=== PATIENT | male | born 1985 | race Caucasian/White ===

== ENCOUNTER 2024-03-30 16:42 | Emergency (ER) | payer SELFPAY ==
[~2024-03-30] VITALS: Ht 182.9 cm; Wt 99.8 kg
[2024-03-30 16:47] VITALS: BP 102/60; PULSE 88; RESP 20; TEMP 97.3; O2SAT 96
== END 2024-03-30 17:31 ==
LOC: MED 16:42
DX: Z04.1 Encounter for examination and observation following transport accident (principal); V89.2XXA Person injured in unspecified motor-vehicle accident, traffic, initial encounter; Y93.89 Activity, other specified; Y92.89 Other specified places as the place of occurrence of the external cause; Y99.8 Other external cause status
CPT/HCPCS: 99283